=== PATIENT | female | born 1980 | race American Indian/Alaskan Native ===

== ENCOUNTER 2019-03-14 07:30 | Day surgery (SDC) | payer OTHER ==
[~2019-03-14 07:30] MED LIST: ceFAZolin/Water 2 GM/20 ML 2 GM/20 ML SYRINGE IV NR
[2019-03-14] MEDS ORDERED: HEPARIN 10,000 UNITS/10 ML VIAL ONE ×2 (07:50→11:37)
[2019-03-14] MEDS ORDERED: THROMBIN (RECOMBINANT) 5,000 UNIT VIAL TP ONE ×2 (07:50→12:30)
[2019-03-14] MEDS ORDERED: SODIUM CHLORIDE 0.9% 250ML 250 ML ONE (07:50)
[2019-03-14] MEDS ORDERED: GELATIN SPONGE SIZE 100 TP ONE (07:50)
[2019-03-14] MEDS ORDERED: SODIUM CHLORIDE 0.9% 1000 ML 1,000 ML IV SCH (08:30)
[2019-03-14 09:11] LABS: Basophils # (Auto) 0.1 K/mm3 (0.0-0.1); Basophils % (Auto) 0.6 % (0.0-1.8); Eosinophils # (Auto) 0.3 K/mm3 (0.0-0.4); Eosinophils % (Auto) 3.2 % (0.0-4.3); Hematocrit 26.6 % (30.3-42.9); Hemoglobin 9.1 gm/dl (10.1-14.3); Lymphocytes # (Auto) 1.6 K/mm3 (1.2-5.4); Lymphocytes % (Auto) 19.1 % (13.4-35.0); Mean Corpuscular HGB Conc 34 % (30-34); Mean Corpuscular Volume 82 fl (79-97); Monocytes # (Auto) 0.6 K/mm3 (0.0-0.8); Monocytes % (Auto) 7.2 % (0.0-7.3); Platelet Count 389 K/mm3 (140-440); Red Blood Count 3.23 M/mm3 (3.65-5.03)
[2019-03-14 09:22] LABS: Calcium 8.7 mg/dL (8.4-10.2)
[2019-03-14] MEDS ORDERED: MIDAZOLAM 2 MG/2 ML INJ IV ONE (09:26)
[2019-03-14] MEDS ORDERED: INSULIN REGULAR, HUMAN 100 UNITS/1 ML IV SCH (09:29)
[2019-03-14] MEDS ORDERED: FAMOTIDINE 20 MG/2 ML INJ IV NR (09:30)
[2019-03-14] MEDS ORDERED: HYDROmorphone 1 MG/1 ML INJ IV PRN (09:33)
[2019-03-14] MEDS ORDERED: ONDANSETRON 4 MG/2 ML INJ IV PRN (09:33)
[2019-03-14] MEDS ORDERED: HYDROcodone/ACETAMINOPHEN 5-325 MG TAB PO PRN (09:33)
--- NOTE | 2019-03-14 09:33 | Anesthesia Consultation ---
Anesthesia Consult and Med Hx Date of service: 03/14/19 - Airway Anesthetic Teeth Evaluation: Good ROM Head & Neck: Adequate Mental/Hyoid Distance: Adequate Mallampati Class: Class II Intubation Access Assessment: Probably Good - Pulmonary Exam CTA: Yes - Cardiac Exam Cardiac Exam: RRR - Pre-Operative Health Status ASA Pre-Surgery Classification: ASA3 Proposed Anesthetic Plan: General - Pulmonary Hx Sleep Apnea: Yes - Cardiovascular System Hx Hypertension: Yes - Central Nervous System Hx Psychiatric Problems: No - Endocrine Hx Renal Disease: Yes Hx End Stage Renal Disease: Yes (Have not started dialysis yet) - Other Systems Hx Cancer: No
--- NOTE | 2019-03-14 09:33 | Anesthesia Day of Surgery ---
Anesthesia Day of Surgery - Day of Surgery Patient Examined: Yes Patient H&P Reviewed: Yes Patient is NPO: Yes
[2019-03-14] MEDS ORDERED: HYDROmorphone 1 MG/1 ML INJ ONE (09:49)
[2019-03-14] MEDS ORDERED: PROPOFOL 200 MG/20 ML VIAL IV ONE ×2 (09:50→11:32)
[2019-03-14] MEDS ORDERED: LIDOCAINE MPF (2%) 20 MG/1 ML VIAL 5 ML ONE (09:50)
[2019-03-14] MEDS ORDERED: SODIUM CHLORIDE 0.9% 250 ML IVPB IV ONE (11:13)
[2019-03-14] MEDS ORDERED: HEPARIN 10,000 UNITS/10 ML VIAL IV ONE (11:13)
[2019-03-14] MEDS ORDERED: SODIUM CHLORIDE 0.9% IRR 1,000 ML BOTTLE IR ONE (11:13)
[2019-03-14] MEDS ORDERED: PROTAMINE SULFATE 50 MG/5 ML INJ ONE (11:37)
[2019-03-14] MEDS ORDERED: GELATIN SPONGE 12 X 7 TP ONE (12:30)
[2019-03-14] MEDS ORDERED: PHENYLEPHRINE/NS 1,000 MCG/10 ML SYRINGE (OR USE) IV ONE (12:35)
[2019-03-14] MEDS ORDERED: oxyCODONE /ACETAMINOPHEN 5-325MG TAB PO PRN (12:58)
--- NOTE | 2019-03-14 12:58 | Post Operative Note ---
Pre-op diagnosis: Stage IV Chronic Kidney Disease Post-op diagnosis: same Procedure: Left Brachiocephalic AV Fistula Creation Anesthesia: GETA Surgeon: CHRISTELLE MCKEON Estimated blood loss: other (25ml) Pathology: none Condition: stable Disposition: PACU
--- NOTE | 2019-03-14 13:02 | Short Stay Summary ---
Short Stay Documentation Date of service: 03/14/19 - History H&P: obtained from office Past Medical History: diabetes, hypertension, other (Stage 4 Chronic Kidney Disease) - Allergies and Medications Current Medications: Allergies No Known Allergies Allergy (Unverified 03/09/19 12:32) Home Medications Medication Instructions Recorded Confirmed Last Taken Type Albuterol Sulfate 2 puff INHALATION BID 03/14/19 03/14/19 1 Week Ago History ~03/07/19 Benzonatate [Tessalon Perles] 100 mg PO TID 03/14/19 03/14/19 03/13/19 History Ergocalciferol (Vitamin D2) 50,000 units PO QWEEK 03/14/19 03/14/19 03/13/19 History Fenofibrate,Micronized 43 mg PO DAILY 03/14/19 03/14/19 03/13/19 History [Fenofibrate] Insulin Glargine,Hum.rec.anlog 30 unit SQ TID 03/14/19 03/14/19 03/13/19 History [Lantus Solostar] Simvastatin 40 mg PO HS 03/14/19 03/14/19 03/13/19 History Sodium Bicarbonate 650 mg PO TID 03/14/19 03/14/19 03/13/19 History amLODIPine 10 mg PO DAILY 03/14/19 03/14/19 03/13/19 History carvediloL [Coreg] 6.25 mg PO BID 03/14/19 03/14/19 03/13/19 History glipiZIDE [Glucotrol] 10 mg PO BID 03/14/19 03/14/19 03/13/19 History hydroCHLOROthiazide [HCTZ] 12.5 mg PO DAILY 03/14/19 03/14/19 03/13/19 History Active Medications Acetaminophen/Hydrocodone Bitart ([place] 5/325) 2 each PO ONCE PRN PRN Reason: Pain, Moderate (4-6) Stop: 03/14/19 16:00 Famotidine (Pepcid) 20 mg IV PREOP NR Stop: 03/14/19 16:00 Last Admin: 03/14/19 09:40 Dose: 20 mg Documented by: Hydromorphone HCl (Dilaudid) 0.5 mg IV Q10MIN PRN PRN Reason: Pain , Severe (7-10) Stop: 03/14/19 23:00 Cefazolin Sodium (Ancef/Sterile Water 2 Gm/20 Ml) 2 gm in 20 mls @ 80 mls/hr IV PREOP NR; Protocol Stop: 03/14/19 23:00 Sodium Chloride (Nacl 0.9% 1000 Ml) 1,000 mls @ 42 mls/hr IV DIRECT JESSICA Last Admin: 03/14/19 08:55 Dose: 42 mls/hr Documented by: Ondansetron HCl (Zofran) 4 mg IV ONCE PRN PRN Reason: Nausea And Vomiting Stop: 03/14/19 16:00 - Physical exam General appearance: no acute distress Lungs: Normal air movement Heart: Regular rate, Normal S1, Normal S2 Extremities: no ischemia - Hospital course Hospital course: the patient was taken to the operating room and had a left arm av fistula creation performed. please refer to the operative concerning details of the procedure. the patient tolerated the procedure well and was discharged home in stable condition. - Disposition Condition at discharge: Stable Disposition: DC- TO HOME OR SELFCARE - Discharge Diagnoses (1) CKD (chronic kidney disease) stage 4, GFR 15-29 ml/min Status: Acute Short Stay Discharge Plan Follow up with: PRIMARY CARE, [Primary Care Provider] - 7 Days
[2019-03-14] MEDS ORDERED: METOPROLOL TARTRATE 5 MG/5 ML INJ IV ONE ×2 (13:27→13:41)
--- NOTE | 2019-03-14 14:12 | Post Anesthesia Evaluation ---
- Post Anesthesia Evaluation Patient Participated: Yes Airway Patent: Yes Stable Respiratory Function: Yes Temp > 96.8F: Yes Pain Manageable: Yes Adequeate Hydration: Yes Anesthesia Complications: No
--- NOTE | 2019-03-14 14:52 | Operative Report ---
STAFF SURGEON: Dr. Mehran Reyes. PREOPERATIVE DIAGNOSIS: Stage 4 chronic kidney disease. POSTOPERATIVE DIAGNOSIS: Stage 4 chronic kidney disease. PROCEDURE PERFORMED: Left brachiocephalic AV fistula creation. COMPLICATIONS: None. ESTIMATED BLOOD LOSS: 25 mL. ANESTHESIA: General. INDICATIONS FOR PROCEDURE: This is a 38-year-old female with stage 4 chronic kidney disease whose renal function is continuing to deteriorate and was sent for vascular consultation for access creation. The patient had a preoperative vein mapping performed, which demonstrated adequate cephalic vein in the left arm. Therefore, the patient was scheduled for brachiocephalic AV fistula creation, due to the size of the patient's arm, the patient is likely to require transposition of her cephalic vein if it matures properly. The patient explained the risks, benefits, and alternatives of procedure. He expressed understanding and wished to proceed. DESCRIPTION OF THE PROCEDURE: After appropriate consent was obtained, the patient was brought back to the operating room and placed on the operating table in supine position with left arm extended. The patient was given appropriate medication for general anesthesia, had LMA placed without difficulty. Left arm was prepped and draped in the usual sterile fashion with ChloraPrep. Appropriate preoperative antibiotics were administered. Appropriate time-out performed indicating correct patient, procedure, and site of procedure. We then began the operation by making a transverse incision just below the antecubital fossa. This was carried through the subcutaneous tissue with a combination of blunt dissection and electrocautery. The cephalic vein was identified and found to be suitable size for venous outflow. Dissection was then continued medially through the bicipital aponeurosis, which allowed to expose the brachial artery, artery was somewhat small, but thought to be suitable for arterial inflow, so this was mobilized for appropriate distance both proximally and distally. The patient was then given 5000 units of unfractionated heparin intravenously. After appropriate timeout elapsed, a bulldog clamp was placed on the cephalic vein on the proximal aspect of the incision. The branches were ligated and transected and then the distal aspect of the vein was transected and ligated with silk suture. We then proceeded to flush the vein with heparinized saline. Once that was complete, vascular clamps were placed on the brachial artery, both proximally and distally. A longitudinal arteriotomy was made with a #11 blade and extended with Christianson scissors. We then proceeded to perform the end-to-side anastomosis with a running 6-0 Prolene suture. Once complete flow was reestablished through the fistula, which had a nice palpable thrill, which was confirmed by Doppler, I then proceeded to obtain hemostasis along the suture line, which was obtained with hemostatic agents. Once satisfied with the hemostasis, I then proceeded to close the wound by approximating the deep subcutaneous layer with interrupted 3-0 PDS and the skin was approximated with mely. Appropriate dressing was placed. The patient tolerated the procedure well, emerged from the general anesthesia, had LMA removed in the operating room and sent to recovery in stable condition. All the sponge, instrument and needle counts were correct at completion of the operation. JOB# [id number] JOHN/HUNG
[2019-03-14 18:03] VITALS: BP 158/82
== END 2019-03-14 07:31 | disposition home or self-care (01) ==
LOC: OR 07:30
PROVIDERS: ATTEND Surgery Vascular Surgery
DX: I12.0 Hypertensive chronic kidney disease with stage 5 chronic kidney disease or end stage renal disease (principal); E11.22 Type 2 diabetes mellitus with diabetic chronic kidney disease; N18.6 End stage renal disease; E78.00 Pure hypercholesterolemia, unspecified; G47.30 Sleep apnea, unspecified; Z79.899 Other long term (current) drug therapy; Z79.4 Long term (current) use of insulin; Z98.890 Other specified postprocedural states
CPT/HCPCS: 36415; 36821; 80048; 81025; 82962; 85025; A4649; J0690; J1170; J1644; J2250; J2370; J2405; J2704; J2720; J7030; J7050; J1815

== ENCOUNTER 2019-05-27 05:57 | Day surgery (SDC) | payer OTHER ==
[2019-05-27] MEDS ORDERED: SODIUM CHLORIDE 0.9% 1000 ML 1,000 ML IV SCH (06:00)
[2019-05-27] MEDS ORDERED: ceFAZolin/STERILE WATER 2 GM/20 ML SYRINGE IV NR (06:00)
[2019-05-27 07:02] LABS: Basophils # (Auto) 0.1 K/mm3 (0.0-0.1); Basophils % (Auto) 0.8 % (0.0-1.8); Eosinophils # (Auto) 0.4 K/mm3 (0.0-0.4); Eosinophils % (Auto) 3.8 % (0.0-4.3); Hemoglobin 9.1 gm/dl (10.1-14.3); Lymphocytes # (Auto) 1.6 K/mm3 (1.2-5.4); Lymphocytes % (Auto) 16.9 % (13.4-35.0); Mean Corpuscular HGB Conc 32 % (30-34); Mean Corpuscular Volume 85 fl (79-97); Monocytes # (Auto) 0.7 K/mm3 (0.0-0.8); Monocytes % (Auto) 7.9 % (0.0-7.3); Platelet Count 374 K/mm3 (140-440); Red Blood Count 3.28 M/mm3 (3.65-5.03); Red Cell Distribution Width 15.3 % (13.2-15.2)
[2019-05-27 07:16] LABS: Calcium 8.4 mg/dL (8.4-10.2)
--- NOTE | 2019-05-27 08:57 | Anesthesia Day of Surgery ---
Anesthesia Day of Surgery - Day of Surgery Patient Examined: Yes Patient H&P Reviewed: Yes Patient is NPO: Yes Beta Blockers: Yes
[2019-05-27] MEDS ORDERED: ONDANSETRON 4 MG/2 ML INJ IV PRN (08:59)
[2019-05-27] MEDS ORDERED: fentaNYL 100 MCG/2 ML INJ IV PRN (08:59)
--- NOTE | 2019-05-27 08:59 | Anesthesia Consultation ---
Anesthesia Consult and Med Hx Date of service: 05/27/19 - Airway Anesthetic Teeth Evaluation: Good, Caps ROM Head & Neck: Adequate Mental/Hyoid Distance: Adequate Mallampati Class: Class II Intubation Access Assessment: Probably Good - Pre-Operative Health Status ASA Pre-Surgery Classification: ASA3 Proposed Anesthetic Plan: General - Pulmonary Hx Asthma: Yes (With URI. +2FS) Hx Sleep Apnea: Yes - Cardiovascular System Hx Hypertension: Yes - Central Nervous System Hx Psychiatric Problems: No - Endocrine Hx Renal Disease: Yes Hx End Stage Renal Disease: Yes (Have not started dialysis yet) Hx Non-Insulin Dependent Diabetes: Yes - Hematic Hx Sickle Cell Disease: No - Other Systems Hx Cancer: No
[2019-05-27] MEDS ORDERED: LIDOCAINE MPF (2%) 20 MG/1 ML VIAL 5 ML ONE ×2 (09:05→09:36)
[2019-05-27] MEDS ORDERED: propofoL 200 MG/20 ML VIAL IV ONE ×2 (09:05→09:45)
[2019-05-27] MEDS ORDERED: fentaNYL 100 MCG/2 ML INJ ONE (09:05)
[2019-05-27] MEDS ORDERED: THROMBIN (RECOMBINANT) 5,000 UNIT VIAL TP ONE ×2 (09:19→10:43)
[2019-05-27] MEDS ORDERED: HEPARIN 10,000 UNITS/10 ML VIAL ONE (09:19)
[2019-05-27] MEDS ORDERED: PROTAMINE SULFATE 50 MG/5 ML INJ ONE (09:19)
[2019-05-27] MEDS ORDERED: SODIUM CHLORIDE 0.9% 250ML 250 ML ONE (09:21)
[2019-05-27] MEDS ORDERED: SUCCINYLCHOLINE CHLORIDE 200 MG/10 ML INJ MDV ONE (09:53)
[2019-05-27] MEDS ORDERED: ONDANSETRON 4 MG/2 ML INJ ONE (09:57)
[2019-05-27] MEDS ORDERED: dexAMETHasone 20 MG/5 ML VIAL ONE (09:57)
[2019-05-27] MEDS ORDERED: GELATIN SPONGE SIZE 100 TP ONE (10:13)
[2019-05-27] MEDS ORDERED: HEPARIN 10,000 UNITS/10 ML VIAL IV ONE (10:41)
[2019-05-27] MEDS ORDERED: GELATIN SPONGE 12 X 7 TP ONE (10:42)
[2019-05-27] MEDS ORDERED: SODIUM CHLORIDE 0.9% 250 ML IVPB IV ONE (10:42)
[2019-05-27] MEDS ORDERED: GLYCOPYRROLATE 0.4 MG/2 ML INJ ONE (12:14)
[2019-05-27] MEDS ORDERED: NEOSTIGMINE 10MG/10 ML INJ MDV ONE (12:14)
[2019-05-27] MEDS ORDERED: oxyCODONE /ACETAMINOPHEN 5-325MG TAB PO PRN (12:26)
--- NOTE | 2019-05-27 12:26 | Post Operative Note ---
Pre-op diagnosis: Stage V Chronic Kidney Disease Post-op diagnosis: same Procedure: Left Arm AV Graft Insertion Anesthesia: GETA Surgeon: CHRISTELLE MCKEON Estimated blood loss: other (25ml) Pathology: none Condition: stable Disposition: PACU
--- NOTE | 2019-05-27 12:30 | Short Stay Summary ---
Short Stay Documentation Date of service: 05/27/19 - History H&P: obtained from office Past Medical History: diabetes, ESRD, hypertension - Allergies and Medications Current Medications: Allergies No Known Allergies Allergy (Verified 05/27/19 06:01) Home Medications Medication Instructions Recorded Confirmed Last Taken Type Albuterol Sulfate 2 puff INHALATION BID 03/14/19 05/26/19 1 Week Ago History ~03/07/19 Ergocalciferol (Vitamin D2) 50,000 units PO QWEEK 03/14/19 05/27/19 05/22/19 09:00 History Fenofibrate,Micronized 43 mg PO DAILY 03/14/19 05/27/19 05/26/19 09:00 History [Fenofibrate] Insulin Glargine,Hum.rec.anlog 30 unit SQ TID 03/14/19 05/27/19 05/27/19 05:00 History [Lantus Solostar] Simvastatin 40 mg PO HS 03/14/19 05/27/19 05/26/19 20:00 History Sodium Bicarbonate 650 mg PO TID 03/14/19 05/27/19 05/26/19 17:00 History amLODIPine 10 mg PO DAILY 03/14/19 05/27/19 05/27/19 05:00 History carvediloL [Coreg] 6.25 mg PO BID 03/14/19 05/27/19 05/27/19 05:00 History glipiZIDE [Glucotrol] 10 mg PO BID 03/14/19 05/27/19 05/26/19 17:00 History hydroCHLOROthiazide [HCTZ] 12.5 mg PO DAILY 03/14/19 05/27/19 05/26/19 09:00 History oxyCODONE /ACETAMINOPHEN [Percocet 1 tab PO Q6HR PRN #24 tablet 03/14/19 05/26/19 Unknown Rx 5/325 mg] Active Medications Cefazolin Sodium (Ancef/Sterile Water 2 Gm/20 Ml) 2 gm IV PREOP NR Stop: 05/27/19 18:00 Fentanyl (Sublimaze) 50 mcg IV Q5MIN PRN PRN Reason: Pain , Severe (7-10) Stop: 05/27/19 22:00 Sodium Chloride (Nacl 0.9% 1000 Ml) 1,000 mls @ 42 mls/hr IV DIRECT JESSICA Last Admin: 05/27/19 09:10 Dose: 42 mls/hr Documented by: Ondansetron HCl (Zofran) 4 mg IV ONCE PRN PRN Reason: Nausea And Vomiting Stop: 05/27/19 13:00 - Physical exam General appearance: no acute distress Lungs: Normal air movement Heart: Regular rate Extremities: no ischemia - Hospital course Hospital course: the patient was taken to the operating room and had a left arm av graft insertion performed. please refer to the operative note concerning details of the procedure. the patient tolerated the procedure well and was discharged home in stable condition. - Disposition Condition at discharge: Stable Disposition: DC-01 TO HOME OR SELFCARE - Discharge Diagnoses (1) CKD (chronic kidney disease) stage 4, GFR 15-29 ml/min Status: Acute Short Stay Discharge Plan Follow up with: PRIMARY CAREMD [Primary Care Provider] - 7 Days
--- NOTE | 2019-05-27 12:52 | Operative Report ---
STAFF SURGEON: Dr. Mehran Reyes. PREOPERATIVE DIAGNOSIS: Stage V chronic kidney disease. POSTOPERATIVE DIAGNOSIS: Stage V chronic kidney disease. PROCEDURE PERFORMED: Left arm arteriovenous graft insertion. COMPLICATIONS: None. ESTIMATED BLOOD LOSS: 25 mL. ANESTHESIA: General. INDICATIONS FOR PROCEDURE: This is a 38-year-old female with worsening renal function in need of a dialysis access. The patient had a left arm AV fistula creation that was attempted that was failed to properly mature. Now, the patient is back for AV graft insertion. The patient was explained the risks, benefits and alternatives of the procedure, expressed understanding and wished to proceed. DESCRIPTION OF PROCEDURE: After appropriate consent was obtained, the patient was brought back to the operating room and placed on the operating table in supine position with left arm extended. The patient was intubated by the anesthesia team. The left arm was prepped and draped in the usual sterile fashion with ChloraPrep. Appropriate preoperative antibiotics were administered and appropriate time-out performed indicating correct patient, procedure, and site of procedure. I then began the operation by making a longitudinal incision near the antecubital fossa. This was carried through the subcutaneous tissue with a combination of blunt dissection and electrocautery. Dissection was continued through the bicipital aponeurosis, allowed to expose the brachial artery, which was found to be suitable in size for arterial inflow. This was then mobilized for appropriate both proximally and distally. We then proceeded to make a transverse incision near the axilla. This was carried through the subcutaneous tissue with a combination of blunt dissection and electrocautery. Dissection was continued through the fascia overlying the axillary neurovascular bundle. The axillary vein was identified and found to be suitable for venous outflow. We then proceeded to create a subcutaneous tunnel between the 2 incision sites bringing through a 4-7 mm Propaten graft. The patient was given 5000 units of unfractionated heparin. After appropriate timeout elapsed, the graft was appropriately spatulated. Vascular clamps were placed on the brachial artery, both proximally and distally. Longitudinal arteriotomy was made with a #11-blade and extended with Christianson scissors. An end-to-side anastomosis was performed with a running 6-0 Prolene suture. Once complete, flow was established through the AV graft had a nice palpable pulse. The graft was then cut to an appropriate length and spatulated. Vascular clamps were then placed on the axillary vein, both proximally and distally. Longitudinal venotomy was performed with a #11 blade and extended with Christianson scissors. An end-to-side anastomosis was performed with a running 5-0 Prolene suture. Once complete, flow was established through the graft had a nice palpable thrill. The patient was given protamine for heparinization reversal. We then looked to obtain further hemostasis along the suture line, which was obtained with hemostatic agents. Once we were satisfied with hemostasis, both incisions were then closed with deep subcutaneous layer with an interrupted 3-0 PDS and the skin was approximated with mely. Appropriate dressing was placed. The patient tolerated the procedure well, emerged from the general anesthesia, was extubated in the operating room and sent to recovery in stable condition. All the sponges, instrument and needle counts were correct at the completion of the operation. JOB# [id number] JOHN/HUNG
[2019-05-27 15:41] VITALS: BP 157/69
--- NOTE | 2019-05-27 17:22 | Post Anesthesia Evaluation ---
- Post Anesthesia Evaluation Patient Participated: Yes Airway Patent: Yes Stable Respiratory Function: Yes Nausea/Vomiting: No Temp > 96.8F: Yes Pain Manageable: Yes Adequeate Hydration: Yes Anesthesia Complications: No Block Receding Appropriately: Not Applicable Patient on Ventilator: No
== END 2019-05-27 05:58 | disposition home or self-care (01) ==
LOC: OR 05:57
PROVIDERS: ATTEND Surgery Vascular Surgery
DX: I12.0 Hypertensive chronic kidney disease with stage 5 chronic kidney disease or end stage renal disease (principal); N18.6 End stage renal disease; E11.22 Type 2 diabetes mellitus with diabetic chronic kidney disease; G47.30 Sleep apnea, unspecified; E78.00 Pure hypercholesterolemia, unspecified; J45.909 Unspecified asthma, uncomplicated; Z98.890 Other specified postprocedural states
CPT/HCPCS: 36415; 36830; 80048; 81025; 82962; 84132; 85025; A4649; C1768; J0330; J0690; J1100; J1644; J2405; J2704; J2710; J2720; J3010; J7030; J7050

== ENCOUNTER 2019-06-01 11:03 | Day surgery (SDC) | payer OTHER ==
[~2019-06-01 11:03] MED LIST changes: +GELATIN SPONGE SIZE 100 TP ONE; +HEPARIN 10,000 UNITS/10 ML VIAL ONE; +PROTAMINE SULFATE 50 MG/5 ML INJ ONE; +SODIUM CHLORIDE 0.9% 1000 ML 1,000 ML IV SCH; +SODIUM CHLORIDE 0.9% 250ML 250 ML ONE; +THROMBIN (RECOMBINANT) 5,000 UNIT VIAL TP ONE; +fentaNYL 100 MCG/2 ML INJ IV PRN
--- NOTE | 2019-06-01 12:02 | Anesthesia Consultation ---
Anesthesia Consult and Med Hx Date of service: 06/01/19 - Airway Anesthetic Teeth Evaluation: Good ROM Head & Neck: Adequate Mental/Hyoid Distance: Adequate Mallampati Class: Class III Intubation Access Assessment: Probably Good (previous easy intubation with Mil 2) - Pulmonary Exam CTA: Yes - Cardiac Exam Cardiac Exam: RRR - Pre-Operative Health Status ASA Pre-Surgery Classification: ASA3 Proposed Anesthetic Plan: General - Pulmonary Hx Asthma: Yes (last inhaler use several weeks ago) Hx Respiratory Symptoms: No SOB: Yes (chronic GOETZ) Hx Sleep Apnea: Yes (intermittent CPAP use) - Cardiovascular System Hx Hypertension: Yes (took amlodine and metoprolol this morning) Hx Heart Attack/AMI: No Hx Percutaneous Transluminal Coronary Angioplasty (PTCA): No - Central Nervous System CVA: No - Gastrointestinal Hx Gastroesophageal Reflux Disease: No - Endocrine Hx End Stage Renal Disease: Yes (not yet started HD) Hx Liver Disease: No Hx Insulin Dependent Diabetes: Yes Hx Thyroid Disease: No - Hematic Hx Anemia: Yes - Other Systems Hx Obesity: Yes (BMI 55) - Additional Comments Anesthesia Medical History Comments: Left hand numbness, weakness since last AVF surgery.
--- NOTE | 2019-06-01 12:03 | Anesthesia Day of Surgery ---
Anesthesia Day of Surgery - Day of Surgery Patient Examined: Yes Patient H&P Reviewed: Yes Patient is NPO: Yes Beta Blockers: Yes (last dose metoprolol today)
[2019-06-01 12:18] LABS: Calcium 8.5 mg/dL (8.4-10.2)
[2019-06-01] MEDS ORDERED: fentaNYL 100 MCG/2 ML INJ IV ONE (12:33)
[2019-06-01] MEDS ORDERED: propofoL 200 MG/20 ML VIAL IV ONE (13:37)
[2019-06-01] MEDS ORDERED: fentaNYL 100 MCG/2 ML INJ ONE ×2 (13:37→15:59)
[2019-06-01] MEDS ORDERED: LIDOCAINE MPF (2%) 20 MG/1 ML VIAL 5 ML ONE (13:37)
[2019-06-01] MEDS ORDERED: HEPARIN 10,000 UNITS/10 ML VIAL IR ONE (14:34)
[2019-06-01] MEDS ORDERED: SODIUM CHLORIDE 0.9% IRR 1,500 ML BOTTLE IR ONE (14:35)
[2019-06-01] MEDS ORDERED: SODIUM CHLORIDE 0.9% 250 ML IVPB IR ONE (14:35)
[2019-06-01] MEDS ORDERED: GELATIN SPONGE SIZE 100 TP ONE (14:36)
[2019-06-01] MEDS ORDERED: THROMBIN (RECOMBINANT) 5,000 UNIT VIAL TP ONE (14:36)
[2019-06-01] MEDS ORDERED: PROTAMINE SULFATE 50 MG/5 ML INJ IV ONE (15:51)
[2019-06-01] MEDS ORDERED: ROCURONIUM 50 MG/5 ML INJ IV ONE (16:00)
[2019-06-01] MEDS ORDERED: dexAMETHasone 20 MG/5 ML VIAL ONE (16:01)
[2019-06-01] MEDS ORDERED: SODIUM CHLORIDE 0.9% 100 ML ONE (16:01)
[2019-06-01] MEDS ORDERED: ONDANSETRON 4 MG/2 ML INJ ONE ×2 (16:01→17:07)
[2019-06-01] MEDS ORDERED: NEOSTIGMINE 10MG/10 ML INJ MDV ONE (16:19)
[2019-06-01] MEDS ORDERED: GLYCOPYRROLATE 0.4 MG/2 ML INJ ONE (16:19)
--- NOTE | 2019-06-01 16:50 | Post Operative Note ---
Pre-op diagnosis: Stage V CKD Post-op diagnosis: same Procedure: Left Upper Extremity Proximalization of the Arterial Anastomosis Anesthesia: GETA Surgeon: CHRISTELLE MCKEON Estimated blood loss: other (25ml) Pathology: none Condition: stable Disposition: PACU
[2019-06-01] MEDS ORDERED: oxyCODONE /ACETAMINOPHEN 5-325MG TAB PO PRN (16:51)
--- NOTE | 2019-06-01 16:55 | Short Stay Summary ---
Short Stay Documentation Date of service: 06/01/19 - History H&P: obtained from office Past Medical History: diabetes, hypertension - Allergies and Medications Current Medications: Allergies No Known Allergies Allergy (Verified 05/27/19 06:01) Home Medications Medication Instructions Recorded Confirmed Last Taken Type Albuterol Sulfate 2 puff INHALATION PRN PRN 03/14/19 05/31/19 1 Week Ago History ~03/07/19 Ergocalciferol (Vitamin D2) 50,000 units PO QWEEK 03/14/19 05/31/19 05/22/19 09:00 History Fenofibrate,Micronized 43 mg PO DAILY 03/14/19 05/31/19 05/26/19 09:00 History [Fenofibrate] Insulin Glargine,Hum.rec.anlog 1 unit SQ TID 03/14/19 05/31/19 05/27/19 05:00 History [Lantus Solostar] Simvastatin 40 mg PO HS 03/14/19 05/31/19 05/26/19 20:00 History Sodium Bicarbonate 650 mg PO TID 03/14/19 05/31/19 05/26/19 17:00 History amLODIPine 10 mg PO DAILY 03/14/19 05/31/19 05/27/19 05:00 History carvediloL [Coreg] 6.25 mg PO BID 03/14/19 05/31/19 05/27/19 05:00 History glipiZIDE [Glucotrol] 10 mg PO BID 03/14/19 05/31/19 05/26/19 17:00 History hydroCHLOROthiazide [HCTZ] 12.5 mg PO DAILY 03/14/19 05/31/19 05/26/19 09:00 History oxyCODONE /ACETAMINOPHEN [Percocet 1 tab PO Q6HR PRN #24 tablet 05/27/19 05/31/19 Unknown Rx 5/325 mg] Active Medications Fentanyl (Sublimaze) 50 mcg IV Q5MIN PRN PRN Reason: Pain , Severe (7-10) Stop: 06/01/19 23:00 Cefazolin Sodium (Ancef/Sterile Water 2 Gm/20 Ml) 2 gm in 20 mls @ 80 mls/hr IV PREOP NR; Protocol Stop: 06/01/19 23:59 Sodium Chloride (Nacl 0.9% 1000 Ml) 1,000 mls @ 42 mls/hr IV DIRECT JESSICA Stop: 06/01/19 23:59 Last Admin: 06/01/19 12:10 Dose: 42 mls/hr Documented by: Oxycodone/Acetaminophen (Percocet 5/325) 2 tab PO Q4H PRN PRN Reason: Pain, Moderate (4-6) - Physical exam General appearance: no acute distress Lungs: Normal air movement Heart: Regular rate Extremities: no ischemia - Hospital course Hospital course: the patient was taken to the operating room and had a left arm av graft revision performed. please refer to the operative note concerning details of the procedure. the patient tolerated the procedure well and discharged home in stable condition. - Disposition Condition at discharge: Stable Disposition: DC-01 TO HOME OR SELFCARE Short Stay Discharge Plan Follow up with: PRIMARY CARE, [Primary Care Provider] - 7 Days
[2019-06-01] MEDS ORDERED: hydrALAZINE 20 MG/1 ML INJ ONE (16:59)
[2019-06-01] MEDS ORDERED: hydrALAZINE 20 MG/1 ML INJ IV ONE (17:03)
[2019-06-01] MEDS ORDERED: ONDANSETRON 4 MG/2 ML INJ IV PRN (17:10)
[2019-06-01] MEDS ORDERED: METOCLOPRAMIDE 10 MG/2 ML INJ ONE (17:38)
[2019-06-01] MEDS ORDERED: METOCLOPRAMIDE 10 MG/2 ML INJ IV ONE (17:39)
[2019-06-01 17:49] VITALS: BP 175/83
--- NOTE | 2019-06-01 18:47 | Operative Report ---
STAFF SURGEON: Dr. Mehran Reyes. PREOPERATIVE DIAGNOSIS: Stage V chronic kidney disease. POSTOPERATIVE DIAGNOSIS: Stage V chronic kidney disease. PROCEDURE PERFORMED: Left upper extremity proximalization of the arterial anastomosis. COMPLICATIONS: None. ESTIMATED BLOOD LOSS: 25 mL. ANESTHESIA: General. INDICATIONS FOR PROCEDURE: This is a 38-year-old female with worsening renal function, recently had a left upper extremity graft insertion performed, who subsequently after the operation began developing symptoms consistent with steal syndrome. Therefore, it was felt that the patient would benefit from revision of her access versus ligation to improve perfusion to the hand. The patient was explained the risks, benefits and alternatives of procedure, expressed understanding and wished to proceed. DESCRIPTION OF PROCEDURE: After appropriate consent was obtained, the patient was brought back to the operating room and placed on the operating table in supine position with the left arm extended. The patient was given appropriate medication for general anesthesia, was intubated without difficulty. The left arm was prepped and draped in the usual sterile fashion with ChloraPrep. Appropriate preoperative antibiotics were administered. Appropriate timeout was performed indicating correct patient, procedure, and site of procedure. We then began the operation by making a longitudinal incision in the medial mid upper arm. This was carried through the subcutaneous tissue with a combination of blunt dissection and electrocautery. Dissection was continued through the bicipital aponeurosis and to expose the brachial artery, which was found to be suitable at this level for arterial inflow and was mobilized for appropriate distance both proximally and distally. We then proceeded to make a longitudinal incision over the initial graft near the antecubital fossa. This was carried through the subcutaneous tissue with a combination of blunt dissection and electrocautery. The graft was identified and mobilized from appropriate distance. We then made a counter incision just distal to the graft and then proceeded to tunnel a 4-7 mm graft subcutaneously from the old graft to the brachial artery that was recently exposed. Once that was complete, the patient was given 5000 units of unfractionated heparin. After appropriate timeout elapsed vascular clamps were placed on the brachial artery, both proximally and distally. The graft was appropriately spatulated. A longitudinal arteriotomy was made with an 11 blade and extended with Christianson scissors and then proceeded to perform the end-to-side anastomosis with a running 6-0 Prolene suture. Once complete, flow was established through the graft, which had a good pulsatile flow. The graft was cut to an appropriate length, spatulated. We then proceeded to place a vascular clamp on the previous graft both proximally and distally. This was then transected. The graft near the arterial anastomosis was then ligated with 2-0 silk suture x 2. The rest of the previous graft was then appropriately spatulated and an end-to-end anastomosis was performed with a running 5-0 Prolene suture. Once complete, flow was established through the graft, which had a nice palpable thrill. Doppler was then used to evaluate the radial artery near the wrist which had a multiphasic signal in the radial and ulnar arteries at the wrist. With this, we then looked to obtain hemostasis along our suture lines, was obtained with hemostatic agents. The patient was also given protamine for heparinization reversal. Satisfied with hemostasis, we then proceeded to close all the wounds with a deep subcutaneous layer with interrupted 3-0 PDS and then the skin was approximated with 4-0 Monocryl with Dermabond dressing. The patient tolerated the procedure well, emerged from the general anesthesia, was extubated in the operating room and sent to recovery in stable condition. All sponge, instrument and needle counts were correct at completion of the operation. JOB# [id number] JOHN/HUNG
--- NOTE | 2019-06-02 16:33 | Post Anesthesia Evaluation ---
- Post Anesthesia Evaluation Patient Participated: Yes Airway Patent: Yes Stable Respiratory Function: Yes Nausea/Vomiting: No Temp > 96.8F: Yes Pain Manageable: Yes Adequeate Hydration: Yes Anesthesia Complications: No
== END 2019-06-01 18:30 | disposition home or self-care (01) ==
LOC: OR 11:03
PROVIDERS: ATTEND Surgery Vascular Surgery
DX: I12.0 Hypertensive chronic kidney disease with stage 5 chronic kidney disease or end stage renal disease (principal); E11.22 Type 2 diabetes mellitus with diabetic chronic kidney disease; N18.6 End stage renal disease; E78.00 Pure hypercholesterolemia, unspecified; J45.909 Unspecified asthma, uncomplicated; G47.30 Sleep apnea, unspecified; E66.9 Obesity, unspecified; M19.90 Unspecified osteoarthritis, unspecified site; D64.9 Anemia, unspecified; Z98.890 Other specified postprocedural states; Z68.43 Body mass index [BMI] 50.0-59.9, adult
CPT/HCPCS: 36415; 36838; 80048; 82962; A4649; C1768; J0360; J0690; J1100; J1644; J2405; J2704; J2710; J2720; J2765; J3010; J7030; J7050